=== PATIENT | male | born 1990 | race African-American/Black ===

== ENCOUNTER 2022-04-21 16:40 | Emergency (ER) | payer BC ==
[2022-04-21 18:41] LABS: SARS-CoV-2 NAA Rapid Test Not Detected (NotDetected)
== END 2022-04-21 19:41 | disposition home or self-care (01) ==
LOC: ERS 16:40
DX: J20.9 Acute bronchitis, unspecified (principal); Z20.822 Contact with and (suspected) exposure to COVID-19
CPT/HCPCS: 99283